=== PATIENT | female | born 1935 | race Caucasian/White ===

== ENCOUNTER 2017-01-29 07:23 | Inpatient (IN) | payer OTHER ==
[~2017-01-29] VITALS: Ht 152.4 cm; Wt 54.6 kg
--- NOTE | ~2017-01-29 | CO ---
Unit #: [id number] #: [id number] Patient: YESSICA BORDEN [id number] [address] [place], [place] [address] [id number] I MR#: [id number] NAME: YESSICA BORDEN ROOM: 329 Age: 81 Sex: F Admission Date: 01/29/2017 : 1935 Attending Physician: Hill Mensah M.D. Primary Care Physician: Kannan Pryor M.D. Consultation Date: 01/30/2017 CONSULTATION REPORT HISTORY OF PRESENT ILLNESS This is an 81-year-old female with a prior history of dementia and hypertension. She presented to the ER after falling at home with left wrist swelling and soreness as well as right knee swelling and pain. She states she was getting back in bed after using the bathroom and her feet slipped out from under her and she fell. Denies any lightheadedness or chest discomfort with the fall. A CT of the head in the ER, showed no acute findings. An MRI of the brain showed chronic microvascular changes. Chest x-ray showed stable cardiomegaly. Yesterday evening, she went into atrial fibrillation with rates in the 130s to 140s. We were asked to see her to evaluate. She received a 10 mg Cardizem bolus and was started on a Cardizem drip. This morning, she is in sinus rhythm with rate 60s to 70s. She denies any symptoms of palpitations, shortness of air, chest discomfort with rapid atrial fibrillation. She denies prior cardiac history. She denies shortness of breath or chest pain. Her son was present at the bedside for evaluation. PAST MEDICAL HISTORY 1. Hypertension. 2. Dementia. PAST SURGICAL HISTORY Right second toe amputation. SOCIAL HISTORY She lives with her son and mpvznteo-ua-vox. She denies a history of illicit drugs or alcohol use. She is a lifetime nonsmoker. FAMILY HISTORY She denies a family history of premature coronary artery disease. ALLERGIES No known drug allergies. HOME MEDICATIONS Exelon one patch topical daily, Namenda 10 mg p.o. b.i.d., Lipitor 20 mg p.o. daily, metoprolol succinate 50 mg p.o. daily, Evista 60 mg p.o. daily. REVIEW OF SYSTEMS A 10-point review of systems was conducted. Positive for recent fall, left hand, left wrist, and right knee swelling and pain. She denies fevers, chills, or body aches. Denies chest pain, shortness of air, or palpitations. Otherwise, negative except for what was stated in the HPI. Unit #: [id number] #: [id number] Patient: YESSICA BORDEN PHYSICAL EXAMINATION VITAL SIGNS: Temperature 98.2, heart rate 63, respiratory rate 16, blood pressure 138/60. GENERAL: This is a pleasant elderly 81-year-old female, resting in bed, in no acute distress. HEENT: Head is atraumatic and normocephalic. Pupils are equal and reactive to light. Mucous membranes are moist and intact. NECK: Supple. Trachea is midline. No JVD. LUNGS: Clear and decreased in bases. Nonlabored respirations. CARDIOVASCULAR: S1 and S2. Regular rate and rhythm. No significant murmurs, rubs, or gallops. ABDOMEN: Soft, nontender, nondistended. EXTREMITIES: Left hand and wrist swollen. Pulses are palpable. Right knee swelling. No pedal edema. NEUROLOGIC: Alert and oriented x3. Follows all commands equally and moves extremities without difficulty. DIAGNOSTIC STUDIES LABORATORY RESULTS: Sodium 139, potassium 3.6, chloride 105, BUN 13, creatinine 0.6, glucose 115. TSH 2.3. Magnesium 2.1. Hemoglobin 12.1, hematocrit 36.8, white blood cell count 15, platelets 341. IMAGING STUDIES: CT of the head was negative for acute findings. Chest x-ray showed stable cardiomegaly with no active disease. MRI of the brain showed microvascular chronic ischemic changes. CARDIOVASCULAR STUDIES: EKG shows atrial fibrillation with ventricular rate of 130 with PVCs. ASSESSMENT 1. Left wrist and right knee swelling. 2. Status post fall at home. 3. Atrial fibrillation with rapid ventricular rate, now normal sinus rhythm. 4. Hypertension. 5. Dementia. PLAN She is in normal sinus rhythm this morning. We will discontinue her Cardizem and heparin drips. Start Cardizem CD 120 mg p.o. once a day. Plan for 24-hour Holter monitor. Due to her risk with falls and dementia, we will not anticoagulate her at this time. If atrial fibrillation recurs in the future, we will consider anticoagulation per Dr. Griffiths's wishes. We will replace her potassium. Check echocardiogram. Thank you for asking us to see this patient. We appreciate the consult. Dictated by... Kateryna Bach Aprn for Jim Griffiths M.D. MEHRDAD/kostas TD: 01/31/2017 11:21 JOB #: [id number] Unit #: [id number] #: [id number] Patient: YESSICA BORDEN CONSULTATION REPORT Page 1 of 1 X X CONSULTATION REPORT
--- NOTE | ~2017-01-29 | CR170 ---
[facility] A Service of [facility] RADIOLOGY TEXT RESULTS PATIENT: YESSICA BORDEN LOCATION: [facility] 329- : 33 UNIT #: [id number] AGE: [address]: JESSICA KRAMER V SEX: F ORDER DR: [id number] [facility] [address] [place], [place] [address] [id number] I MR#: [id number] Acc #: [id number] NAME: YESSICA BORDEN. : 1935 SEX: F STUDY DATE/TIME: 01/30/2017 16:48 UNIT: [address] ROOM: [facility] STUDY DESCRIPTION: CR Knee 2 Views Rt Attending Physician: Jessica Kramer M.D. Ordering Physician: Jessica Kramer M.D. Primary Care Physician: Kannan Pryor M.D. MEDICAL IMAGING REPORT This report is preliminary unless electronic signature is present EXAM Right knee series 01/30/2017. HISTORY The history is pain. Fall 01/29/2017. TECHNIQUE AP and lateral radiographs of the right knee are presented. FINDINGS There is no traumatic fracture or malalignment. Marked narrowing medial joint space compartment. Probably ymek-hw-gsveapab narrowing, femoral joint space compartment. Marginal osteophyte formations medial compartment articular surfaces. There is no definite joint effusion. Question mild soft tissue swelling right suprapatellar region. This could in part be a projectional artifact. Correlate with exam. There is no soft tissue defect. There are vascular calcifications. Small fabella posteriorly. Dictated by... Eloy Mckeon M.D. THIS IS AN ELECTRONICALLY VERIFIED REPORT Eloy Mckeon M.D. at 02/01/2017 10:02 PM NIGEL/lalitha TD: 01/31/2017 08:13 JOB #: [id number] MEDICAL IMAGING REPORT Page 1 of 1 COPY
--- NOTE | ~2017-01-29 | EKG ---
PATIENT: YESSICA BORDEN UNIT #: [id number] Ventricular Rate: 130 BPM Atrial Rate: 117 BPM QRS Duration: 80 ms Q-T Interval: 322 ms QTC Calculation(Bezet): 473 ms Calculated R [place]: 133 degrees Calculated T [place]: 96 degrees Diagnosis Line: Poor data quality, interpretation may be Diagnosis Line: adversely affected Diagnosis Line: Suspect arm lead reversal, interpretation Diagnosis Line: assumes no reversal Diagnosis Line: Atrial fibrillation with rapid ventricular Diagnosis Line: response with premature ventricular or aberrantly Diagnosis Line: conducted complexes Diagnosis Line: Septal infarct , age undetermined Diagnosis Line: Lateral infarct , age undetermined Diagnosis Line: Abnormal ECG Diagnosis Line: When compared with ECG of 29-JAN-2017 07:55, Diagnosis Line: (unconfirmed) Diagnosis Line: Significant changes have occurred Diagnosis Line: Confirmed by SULMA BROWN MD ([id number]) on Diagnosis Line: 01/31/2017 10:49:58 AM INTERPRETING MD: KEVIN TATE
--- NOTE | ~2017-01-29 | A ---
[facility] Nutrition Therapy DATE: 01/30/17 Patient: YESSICA BORDEN Physician: BALJINDER Address: [id number] [place] [address] ROAD Room/Bed: [address] [place] [address], Zip: [place] [address] Admit Date: 01/29/17 Date of : 33 Height: 5 0 Weight: 119 54.4 NUTRITIONAL ASSESSMENT: REASON: PT SEEN FOR DX, CONSULT RECEIVED PT IS 81 Y.O. FEMALE ADMITTED FOR TIA, AFIB PMH: DEMENTIA, HTN, (R) 2ND TOE AMPUTATION Anthropometrics: 5'0", WT: 120# (55 KG), BMI: 23.4 Labs: GLU: 115, CA+:8.2, ALB: 3.1 Meds: LIPITOR, NOVOLOG, NACL I/O & Bowel function: 480/601 Skin Integrity: NO KNOWN SKIN ISSUES EDEMA: LUE 1+EDEMA; RUE 1+ EDEMA Assessment: CHART REVIEWED AND EVENTS NOTED. PT SEEN FOR DX, ALSO CONSULT RECEIVED. PT PLEASANTLY CONFUSED AT TIME OF VISIT. DAUGHTER AT BEDSIDE REPORTS PT TO HAVE FAIR PO INTAKE AND APPETITE PRIOR TO ADMIT, NOTING PT "NIBBLES" THROUGHOUT THE DAY. DAUGHTER ADDS PT "ATE WELL" FOR LUNCH TODAY. PT AND DAUGHTER DENY ANY RECENT WEIGHT LOSS. THIS RD ENCOURAGED ADEQUATE KCAL AND PROTEIN INTAKE, PT AGREED TO ENSURE PUDDING BID, RD TO ORDER. PT AND DAUGHTER REPORTED NO DIET QUESTIONS AT THIS TIME. RD TO REMAIN AVAILABLE. Dx: INADEQUATE PROTEIN-ENERGY INTAKE R/T ADVANCED AGE, PMH AEB DAUGHTER REPORT ABOVE. 2. ALTERED NUTRIENT UTILIZATION R/T PMH AEB NEED FOR THERAPEUTIC DIET ORDER. Intervention: 1. HEALTHY HEART DIET 2. ENSURE PUDDING BID Monitoring, Evaluation and Goals: 1. ORAL INTAKE; CONSUME/TOLERATE >50% OF MEALS AND SUPPLEMENTS 2. WEIGHTS; PROMOTE HEALTHY WEIGHT MAINTENANCE 3. LABS; GLU, CA+ MONITOR: PER PROTOCOL, CRITERIA TO DETERMINE IF GOALS ARE MET Recommendations: 1. PLEASE ORDER [place] ENSURE PUDDING BID W/MEALS FOR SUPPLEMENTAL NUTRITION 2. ENCOURAGE PO INTAKE [facility] Nutrition Therapy DATE: 01/30/17 Patient: YESSICA BORDEN Physician: BALJINDER Address: [id number] [place] [address] ROAD Room/Bed: [address] [place] [address], Zip: [place] [address] Admit Date: 01/29/17 Date of : [birth year] Height: 5 0 Weight: [address] WILL F/U PER PROTOCOL PT IS MILDLY COMPROMISED Respectfully, YONAS MOON MS, RD, LD [facility] cc: client file
--- NOTE | ~2017-01-29 | EKG ---
PATIENT: YESSICA BORDEN UNIT #: [id number] Ventricular Rate: 68 BPM Atrial Rate: 68 BPM P-R Interval: 172 ms QRS Duration: 76 ms Q-T Interval: 410 ms QTC Calculation(Bezet): 435 ms P [place]: 34 degrees Calculated R [place]: 54 degrees Calculated T [place]: 74 degrees Diagnosis Line: Normal sinus rhythm Diagnosis Line: Nonspecific T wave abnormality Diagnosis Line: Abnormal ECG Diagnosis Line: When compared with ECG of 01-OCT-2010 23:30, Diagnosis Line: Nonspecific T wave abnormality, worse in Diagnosis Line: Anterolateral leads Diagnosis Line: Confirmed by SULMA BROWN MD ([id number]) on Diagnosis Line: 01/31/2017 10:49:02 AM INTERPRETING MD: KEVIN TATE
--- NOTE | ~2017-01-29 | CR278 ---
[facility] A Service of [facility] RADIOLOGY TEXT RESULTS PATIENT: YESSICA BORDEN LOCATION: [facility] 329- : 33 UNIT #: [id number] AGE: [address]: JESSICA KRAMER V SEX: F ORDER DR: [id number] [facility] [address] [place], [place] [address] [id number] I MR#: [id number] Acc #: [id number] NAME: YESSICA BORDEN. : 1935 SEX: F STUDY DATE/TIME: 01/30/2017 16:51 UNIT: [address] ROOM: [facility] STUDY DESCRIPTION: CR Wrist 2 View Lt Attending Physician: Jessica Kramer M.D. Ordering Physician: Jessica Kramer M.D. Primary Care Physician: Kannan Pryor M.D. MEDICAL IMAGING REPORT This report is preliminary unless electronic signature is present EXAM Left wrist series, 01/30/2017. HISTORY Pain, status post fall, 01/29/2017. FINDINGS AP and lateral views of the wrist are presented. Poor quality examination. An oblique view is not provided. The lateral view is poorly positioned. Generalized bony demineralization. On the lateral view, relationship of the scaphoid bone to the trapezium bone is ill-defined and I cannot exclude anterior subluxation or dislocation of the trapezium bone. This could easily be a projectional artifact given the obliquity of the lateral view. There is marked degenerative change at the basal joint of the thumb. This could be contributing to the appearance. Consider repeat wrist series. Correlate with location of pain and mechanism of injury. No other potential traumatic malalignment is seen. No definite fracture. Soft tissue swelling posterior aspect of the wrist and probably along the anterior lungs are posterior aspect of the wrist and probably along the anterior aspect of the wrist as well. There is no soft tissue defect seen. There does appear to be bandaging material over the posterior aspect of the wrist and hand. Dictated by... Eloy Mckeon M.D. THIS IS AN ELECTRONICALLY VERIFIED REPORT Eloy Mckeon M.D. at 02/01/2017 10:02 PM Curt TD: 01/31/2017 08:28 JOB #: [id number] [facility] A Service of [facility] RADIOLOGY TEXT RESULTS PATIENT: YESSICA BORDEN LOCATION: [facility] 329-01 : 33 UNIT #: [id number] AGE: [address]: JESSICA KRAMER V SEX: F ORDER DR: MEDICAL IMAGING REPORT Page 1 of 1 COPY
--- NOTE | ~2017-01-29 | CR72 ---
[facility] A Service of [facility] RADIOLOGY TEXT RESULTS PATIENT: YESSICA BORDEN LOCATION: [facility] [id number] : 33 UNIT #: [id number] AGE: [address]: Gibson Neri MD SEX: F ORDER DR: [id number] [facility] [address] [place], [place] [address] [id number] I MR#: [id number] Acc #: [id number] NAME: YESSICA BORDEN. : 1935 SEX: F STUDY DATE/TIME: 01/29/2017 7:53 UNIT: [facility] ROOM: [address] STUDY DESCRIPTION: CR Chest Single View Portable Attending Physician: Gibson Neri M.D. Ordering Physician: Arnav Vazquez M.D. Primary Care Physician: Kannan Pryor M.D. MEDICAL IMAGING REPORT This report is preliminary unless electronic signature is present EXAM Portable chest 01/29 INDICATION Shortness of air, weakness and left arm and leg swelling that started today. FINDINGS AP portable chest is compared with 06/17/2011. Heart remains enlarged. Lungs are clear. No pneumothorax. There is dextroscoliosis in the thoracic spine. IMPRESSION Stable cardiomegaly. No active disease. Dictated by... Mike Rivera Jr., M.D. THIS IS AN ELECTRONICALLY VERIFIED REPORT Mike Rivera Jr., M.D. at 01/29/2017 3:38 PM LUCERO/renae TD: 01/29/2017 13:56 JOB #: [id number] MEDICAL IMAGING REPORT Page 1 of 1 COPY
--- NOTE | ~2017-01-29 | DS ---
Unit #: [id number] #: [id number] Patient: YESSICA BORDEN [id number] [address] [place], [place] [address] [id number] I MR#: [id number] NAME: YESSICA BORDEN. ROOM: 329 Age: 81 Sex: F Admission Date: 01/29/2017 : 1935 Discharge Date: 02/01/2017 Attending Physician: Hill Mensah M.D. Primary Care Physician: Kannan Pryor M.D. DISCHARGE SUMMARY DISCHARGE DIAGNOSES Urinary tract infection, paroxysmal atrial fibrillation with rapid ventricular rate, dementia. HOSPITAL COURSE The patient is an 81-year-old female, who presented to [facility] Emergency Department on 01/29/2017 after a fall. She had some additional symptoms including left arm and left leg swelling. Additionally, discussion with family revealed the patient had some issues with encephalopathy/confusion after starting Namenda. Given these complaints and the finding of urinary tract infection in the emergency department, the patient was admitted. There was additionally some question of TIA given the symptoms, though this appears less likely. The patient did go on to develop some tachycardia with a pulse of 127 associated with her atrial fibrillation and the patient was seen by Cardiology. She was initially started on Cardizem, but this has since been stopped and the patient is being discharged on amiodarone for rate control. The patient's symptoms have resolved at this time. It is unclear if this is due to treatment of the urinary tract infection or discontinuation of Namenda, though I favor the latter. DISCHARGE MEDICATIONS Amiodarone 200 mg daily, metoprolol succinate 50 mg p.o. daily, Lipitor 20 mg p.o. daily, Evista 60 mg daily, Exelon patch topically daily. FOLLOWUP The patient should follow up with her primary care provider in 1 to 2 weeks. Dictated by... Adam Alexander M.D. KRISTYN/kostas TD: 02/05/2017 02:02 JOB #: [id number] Unit #: [id number] #: [id number] Patient: YESSICA BORDEN DISCHARGE SUMMARY Page 1 of 1 X Adam Alexander MD DISCHARGE SUMMARY
--- NOTE | ~2017-01-29 | CT71 ---
[facility] A Service of [facility] RADIOLOGY TEXT RESULTS PATIENT: YESSICA BORDEN LOCATION: [facility] : 33 UNIT #: [id number] AGE: [address]: Gibson Neri MD SEX: F ORDER DR: [id number] [facility] [address] [place], [place] [address] [id number] I MR#: [id number] Acc #: [id number] NAME: YESSICA BORDEN. : 1935 SEX: F STUDY DATE/TIME: 01/29/2017 8:37 UNIT: [facility] ROOM: [address] STUDY DESCRIPTION: CT Head Wo Contrast Attending Physician: Gibson Neri M.D. Ordering Physician: Arnav Vazquez M.D. Primary Care Physician: Kannan Pryor M.D. MEDICAL IMAGING REPORT This report is preliminary unless electronic signature is present EXAM Noncontrast head CT. HISTORY 81-year-old female swelling left arm and leg. Complains of weakness. Fell out of bed today. COMPARISON Head CT, 09/01/2006. FINDINGS Thin section axial images performed of the brain without contrast. This CT exam was performed with one or more of the following radiation dose reduction techniques: automatic exposure control, adjustment of mA and/or kV according to patient size, and iterative reconstruction. Mild atrophy in keeping with age. No mass, mass effect or midline shift. No hemorrhage. No abnormal extraaxial fluid collections. Bony calvaria, skull base, mastoids and sinuses unremarkable. IMPRESSION Normal noncontrast head CT for age. Dictated by... Shena Liu M.D. THIS IS AN ELECTRONICALLY VERIFIED REPORT Shena Liu M.D. at 01/29/2017 5:18 PM Brandy [facility] A Service of [facility] RADIOLOGY TEXT RESULTS PATIENT: YESSICA BORDEN LOCATION: [facility] : 33 UNIT #: [id number] AGE: [address]: Gibson Neri MD SEX: F ORDER DR: TD: 01/29/2017 15:44 JOB #: [id number] MEDICAL IMAGING REPORT Page 1 of 1 COPY
--- NOTE | ~2017-01-29 | CO ---
Unit #: [id number] #: [id number] Patient: YESSICA BORDEN [id number] [facility] [address] [place], [place] [address] [id number] I MR#: [id number] NAME: YESSICA BORDEN. ROOM: 329 Age: 81 Sex: F Admission Date: 01/29/2017 : 1935 Attending Physician: Hill Mensah M.D. Primary Care Physician: Kannan Pryor M.D. Consultation Date: 01/29/2017 CONSULTATION REPORT REASON FOR CONSULTATION TIA. PRIMARY CARE PHYSICIAN Dr. Pryor. PATIENT IDENTIFICATION This 81-year-old right-handed white female, who is evaluated in room ER 18 at [facility]. SOURCE OF INFORMATION 1. Essentially, the family. 2. The patient has dementia. PROBLEM LIST 1. Hypertension. 2. Hyperlipidemia. 3. She has been diagnosed with cardiac issues. 4. Early dementia. 5. Status post right second toe amputation in the past. 6. Status post falls. HISTORY OF PRESENT ILLNESS This 81-year-old female who was actually brought in for swelling in the left arm and also in the right leg and they were saying it started when she was started on memantine. The patient stated that she has fallen or nearly fallen several times. The swelling in the left arm was probably a week or so old and the right tezwj-swb-auif swelling is there. So far what I have is that her blood pressure has been elevated as high as it was 114/110 and other times 119/105. She is afebrile. Head CT showed atrophy, but nothing else. She has significant dementia. Her white count is 11.7. Urinalysis did show 3+ leukocyte esterase, trace protein, 50 to 100 wbc's and bacteria was negative though. No seizures. She was called TIA, but I am not really sure what the TIA symptom was, she has memory problems and her one child who lives with her did not notice anything because probably so progressive, but another child that came visiting, saw significant change which is typical. PAST MEDICAL HISTORY As discussed above. Unit #: [id number] #: [id number] Patient: YESSICA BORDEN PAST SURGICAL HISTORY As discussed above. ALLERGIES None. HOME MEDICATIONS Exelon 1 patch topically daily, Namenda 10 mg p.o. b.i.d., Lipitor 20 mg, metoprolol succinate 50 mg, Evista 60 mg daily. FAMILY HISTORY Noncontributory secondary to her age. SOCIAL HISTORY No tobacco, alcohol, or drug use. She lives with family with good support. REVIEW OF SYSTEMS GENERAL: The patient really denies any problems. She does not even say there is pain. She state that she may have fallen nearly fallen. She denies any weight issues, fever, chills, rigor, or sweats. HEENT: No headaches. No double vision, earache, runny nose, or sore throat. CARDIOVASCULAR: No chest pain, clubbing, cyanosis, orthopnea, or palpitation. PULMONARY: No shortness of air, cough, or expectoration. GI: No nausea, vomiting, diarrhea, or constipation. GENITOURINARY: No genitourinary symptoms. EXTREMITIES: Problem as discussed. Her left elbow and right uigeh-byc-bmng pain. BACK: No back problems. PSYCHIATRIC: Probably early dementia. NEUROLOGIC: Probably early dementia. No other hematologic, dermatologic, or endocrine problem. PHYSICAL EXAMINATION VITAL SIGNS: Temperature shows 98 degrees Fahrenheit, pulse 66, respirations 15, blood pressure 141/110, O2 saturations were 95% to 99%, weight of 120 pounds. BMI was 23. NEUROLOGIC: The patient is awake. She is alert. She is oriented to herself and her son. She is not oriented to the place. She knows she is in some sort of hospital. She does not know the date or the day or the time. She can name. She can follow commands. No right/left confusion. No finger agnosia. Cranial examination demonstrates respond to threats in all lange. Extraocular movements are intact. Eye movements are conjugate. No ptosis. No nystagmus. Sensation on the face and scalp are normal. Strength of muscles of facial expression are normal. Hearing seemed to be intact. Tongue was midline. Uvula was midline. Palate elevation was normal. Head turning and shoulder shrugs were unremarkable. Motor examination demonstrated normal bulk, tone, except for pain in the left wrist and right zhywp-biy-syqo. I did not see any significant strength deficits, so it may be give-way weakness because of the pain. Her fine motor movements were normal in the fingers and the toes. Sensory examination intact for soft touch and pain sensation. No Unit #: [id number] #: [id number] Patient: YESSICA BORDEN was seen. Romberg was not evaluated. Gait examination was deferred. I could not get any reflexes. Toes are equivocal. DIAGNOSTIC STUDIES LABORATORY RESULTS: Reviewed. IMPRESSION This is a very interesting 81-year-old right-handed white female, who actually was brought in for left wrist swelling and weakness. I think the weakness is related to left wrist swelling. There is also right leg vkkrg-bsa-hemi swelling. I do not think there is anything to do with memantine. She has fallen or nearly fallen a couple of times, probably this is not a transient ischemic attack, though at her age and comorbidities strokes can happen and sometime right hemispheric strokes can have neglect and they could be left-sided weakness. That the first thing I am going to do is MRI of the brain. If the MRI of the brain is negative, and this symptoms have been going on for several days and definitely it is not a stroke. If it is a stroke, I will follow up and do further workup. I do want to recommend aspirin and continue the Lipitor, though I would suggest a higher dose if we are going to use it. I will check other labs and she may have urinary tract infection and that may need to be treated. I am not starting or adding any other medication. I talked to her son and again I really doubt that this is a transient ischemic attack and I think the other issues, so call me for any other questions, issues, or concerns and follow up with primary care physician and primary neurologist. Dictated by... Kirt Rossi/kostas TD: 01/30/2017 11:58 JOB #: [id number] CONSULTATION REPORT Page 1 of 1 X Gerber Guerrero MD CONSULTATION REPORT
--- NOTE | ~2017-01-29 | MR18 ---
[facility] A Service of [facility] RADIOLOGY TEXT RESULTS PATIENT: YESSICA BORDEN LOCATION: [facility] 329-01 : 33 UNIT #: [id number] AGE: [address]: JESSICA KRAMER V SEX: F ORDER DR: [id number] [facility] [address] [place], [place] [address] [id number] I MR#: [id number] Acc #: [id number] NAME: YESSICA BORDEN. : 1935 SEX: F STUDY DATE/TIME: 01/29/2017 17:10 UNIT: [address] ROOM: [facility] STUDY DESCRIPTION: MR Brain Wo Contrast Attending Physician: Jessica Kramer M.D. Ordering Physician: Gerber Guerrero M.D. Primary Care Physician: Kannan Pryor M.D. MRI CENTER REPORT This report is preliminary unless electronic signature is present. EXAM MRI of the brain without contrast dated 01/29/2017. COMPARISON MRI brain without contrast dated 04/23/2013. HISTORY Left arm and left leg swelling for 2 weeks, getting worse. Patient has slight dementia. Unable to give history. Right leg pain today, generalized weakness. FINDINGS Multisequence, multiplanar imaging of the brain was obtained without contrast. No acute stroke, hydrocephalus or midline shift. There is focal hypointense gradient signal in the anterior aspect of the left cerebellar hemisphere. Scattered punctate, hypointense gradient signal is also seen in bilateral occipital lobes, left temporal lobe, left parietal lobe. They are predominantly noted in the region of the sulci and adjacent cortex. They could represent punctate tiny vessel or tiny calcification or hemosiderin deposition. They were not as well seen in the prior study from 4 years ago, except in the left cerebellar hemisphere. Status post bilateral cataract surgery. S-shaped nasal septal deviation is noted. There is minimal right and [id number] left mastoid mucosal thickening. Thick slices through the sella with the pituitary gland, pineal region are unremarkable. Degenerative changes are in the cervical spine. Motion artifact is noted in some of the sequences. IMPRESSION 1. Hyperintense T2-signal lesions are noted in the brain suggestive of mild chronic microvascular ischemic change or migraine, based on age and statistics. Nonspecific. Punctate hypointense gradient signal in the left cerebellar hemisphere is stable and could represent focal calcification or hemosiderin deposition from old insult. There are STS. [facility] A Service of [facility] RADIOLOGY TEXT RESULTS PATIENT: YESSICA BORDEN LOCATION: A 329- : 33 UNIT #: [id number] AGE: [address]: JESSICA KRAMER V SEX: F ORDER DR: also punctate few other hypointense gradient signal changes noted in the supratentorial brain without any associated edema. They could represent tiny petechial areas of hemosiderin deposition or calcification. Less likely, they could represent part of a vessel. No associated mass effect. Dictated by... Bailee Francois M.D. THIS IS AN ELECTRONICALLY VERIFIED REPORT Bailee Francois M.D. at 01/30/2017 6:38 PM CPR/psc TD: 01/30/2017 09:36 JOB #: [id number] MRI CENTER REPORT Page 1 of 1 COPY
--- NOTE | ~2017-01-29 | CR285 ---
[facility] A Service of [facility] RADIOLOGY TEXT RESULTS PATIENT: YESSICA BORDEN LOCATION: [facility] 329- : 33 UNIT #: [id number] AGE: [address]: JESSICA KRAMER V SEX: F ORDER DR: [id number] [facility] [address] [place] [address] [place], [place] [address] [id number] I MR#: [id number] #: [id number] NAME: YESSICA BORDEN. : 1935 SEX: F STUDY DATE/TIME: 01/31/2017 18:30 UNIT: [address] ROOM: [facility] STUDY DESCRIPTION: CR Wrist W Navicular Min 3 Lt Attending Physician: Jessica Kramer M.D. Ordering Physician: Jessica Kramer M.D. Primary Care Physician: Kannan Pryor M.D. MEDICAL IMAGING REPORT This report is preliminary unless electronic signature is present EXAM Left wrist HISTORY Fall. Pain. FINDINGS Four views of the left wrist were obtained. These include exaggerated navicular views. Marked degenerative changes first carpometacarpal joint noted. No navicular bone fracture visible. IMPRESSION No navicular bone fracture identified. If symptoms persist, follow-up imaging may show a fracture in a week or 2. Dictated by... Robbie Sun M.D. THIS IS AN ELECTRONICALLY VERIFIED REPORT Robbie Sun M.D. at 02/01/2017 7:58 PM FEL/pcl TD: 02/01/2017 16:48 JOB #: [id number] MEDICAL IMAGING REPORT Page 1 of 1 COPY
--- NOTE | ~2017-01-29 | HP ---
Unit #: [id number] #: [id number] Patient: YESSICA BORDEN [id number] [address] [place], [place] [address] [id number] I MR#: [id number] NAME: YESSICA BORDEN. ROOM: 73606 Age: 81 Sex: F Admission Date: 01/29/2017 : 1935 Attending Physician: Gibson Neri M.D. Primary Care Physician: Kannan Pryor M.D. HISTORY AND PHYSICAL CHIEF COMPLAINT Weakness. HISTORY OF PRESENT ILLNESS The patient is an 81-year-old female with a history of dementia and started on Namenda on the 12/09. Presented to the emergency room status post fall associated with swelling of the left arm and leg after starting the Namenda. The patient stated the patient was trying to go to the bathroom and had a fall while returning back to the bed. The patient also complains of swelling of the left hand and warm on the right leg. The patient had a CT of the head that was negative. The patient was positive for a urinary tract infection and is being admitted for the above reasons. The patient denies any fever or any urinary complaints. PAST MEDICAL HISTORY 1. History of hypertension. 2. Dementia. PAST SURGICAL HISTORY History of right second toe amputation. SOCIAL HISTORY No history of smoking cigarettes, drinking alcohol or any illicit drug abuse. FAMILY HISTORY Reviewed and none. ALLERGIES No known drug allergies. HOME MEDICATIONS 1. Exelon. 2. Namenda. 3. Lipitor. 4. Metoprolol. 5. Evista. REVIEW OF SYSTEMS Positive for fall. Positive for swelling. Positive for soreness. Denies any fever. Denies any chills. All other systems have been reviewed and none. PHYSICAL EXAMINATION Unit #: [id number] #: [id number] Patient: YESSICA BORDEN GENERAL: The patient is lying on a bed, not in acute distress. VITALS: Temperature 98, pulse 74, respiratory rate 15, blood pressure 152/57, saturating 99% on room air. HEENT: Head atraumatic, normocephalic. Pupils equal, round and reactive to light and accommodation. Extraocular movements are intact. Dry mucous membranes. NECK: Supple. LUNGS: Decreased air entry at the bases. HEART: Regular rate and rhythm. ABDOMEN: Soft. Positive bowel sounds. EXTREMITIES: Swelling of the left ring finger beyond the ring. Warmness to the left hand and the right ankle. NEUROLOGIC: Alert, awake and oriented. No gross focal motor deficits. DIAGNOSTIC STUDIES IMAGING: Chest x-ray shows stable cardiomegaly, no active disease. LABORATORY: Glucose 93, WBC 11.7, hemoglobin 12.9, hematocrit 38, platelets 349, troponin less than 0.05, INR 1, CPK 48, sodium 140, potassium 4, chloride 103, bicarb 28, glucose 100, BUN 15, creatinine 0.7, calcium 8.8, AST 22, ALT 13. Urinalysis shows positive 3+ leukocyte esterase, trace protein, 50-100 urine WBCs. ASSESSMENT/PLAN 1. Fall. 2. Urinary tract infection. 3. Weakness. PLAN Plan to admit patient to observation with telemetry. The patient had a CT of the head that was negative. The patient had a consult with neurology for concerns for subacute stroke as per the ER as the ER was concerned that the patient might have a stroke. That is what lead to the neuro consult and recommended MRI of the brain. Recommended not to continue with Namenda. Continue with IV antibiotics with Rocephin. Continue with OT and PT. Remove the ring for constriction and then further recommendations will follow. Dictated by Kirt Diggs TD: 01/29/2017 15:06 JOB #: [id number] HISTORY AND PHYSICAL Page 1 of 1 X SARAH GARCIA MD X HISTORY AND PHYSICAL
--- NOTE | ~2017-01-29 | HM ---
Unit #: [id number] #: [id number] Patient: YESSICA BORDEN [id number] [address] [address] [id number] I MR#: [id number] NAME: YESSICA BORDEN. : 1935 SEX: F STUDY DATE/TIME: 02/04/2017 UNIT: C3A PCU ROOM: 329 STUDY DESCRIPTION: Holter monitor Attending Physician: Hill Mensah M.D. Primary Care Physician: Kannan Pryor M.D. CARDIOLOGY REPORT EXAM Holter monitor. DATE APPLIED January 31, 2012. DATE SCANNED February 05, 2012. ORDERED BY Hill Mensah M.D. READ BY [facility], Cha Brunner M.D. INDICATION TIA. COMMENTS 1. Basic rhythm is normal sinus rhythm. Total beats 36,496. Average heart rate 75 per minute. Heart rate varies from 61 per minute at 1603 to 113 per minute at 2104. 2. Scattered and isolated PVCs noted. 3. Fifty-six isolated PACs and 2 atrial couplets noted. Four runs of supraventricular tachycardia noted. Longest run contained 4 beats. 4. No high-degree AV blocks noted. 5. No diary with symptoms available. Dictated by... Kirt Post/hillary TD: 02/05/2017 07:33 JOB #: [id number] Unit #: [id number] #: [id number] Patient: YESSICA BORDEN CARDIOLOGY REPORT Page 1 of 1 X Cha Brunner MD HOLTER MONITOR REPORT
[~2017-01-29 07:23] MED LIST: ASPIRIN PO; CALTRATE PLUS T1 TAB PO; CIPRO PO; LIPITOR PO; PHENERGAN PO; PREMARIN VAGINAL; TOPROL XL PO
[2017-01-29 08:46] LABS: BASOPHIL# 0.1 X10e3 (0-0.3); BASOPHIL% 0.5 % (0-2.5); EOSINOPHIL# 0.1 X10e3 (0-0.7); EOSINOPHIL% 0.6 % (0.0-7.0); HEMOGLOBIN 12.9 gm/dL (12.0-16.0); LYMPHOCYTE# 1.2 X10e3 (1.0-3.5); LYMPHOCYTE% 10.1 % (17.0-45.0); MEAN CELL VOLUME 93.9 FL (83-96); MEAN CORPUSCULAR HEMOGLOBIN 31.9 PG (28-34); MONOCYTE% 8.5 % (3.0-12.0); NEUTROPHIL# 9.4 X10e3 (1.5-7.1); NEUTROPHIL% 80.3 % (40-75); PLATELET COUNT 349 X10e3 (140-420); RED BLOOD COUNT 4.04 X10e (3.90-5.30); RED CELL DISTRIBUTION WIDTH 12.9 % (11.0-15.5); WHITE BLOOD COUNT 11.7 X10e3 (4.0-10.5)
[2017-01-29 08:49] LABS: DIFF IND NO
[2017-01-29 08:49] LABS: POC - CKMB 1.1 ng/mL (0.0-7.9); POC - TROPONIN <0.05 ng/mL (<=0.05)
[2017-01-29 08:54] LABS: PROTHROMBIN TIME (PATIENT) 10.5 SECONDS (10.0-11.7)
[2017-01-29 09:35] LABS: ALBUMIN SERUM 3.1 g/dL (3.5-5.0); BILIRUBIN, DIRECT 0.2 mg/dL (0.0-0.2); BILIRUBIN,INDIRECT 0.7 mg/dL (0.0-0.9); BILIRUBIN,TOTAL 0.9 mg/dL (0.2-2.0); BUN/CREATININE RATIO 21.42; CALCIUM SERUM 8.8 mg/dL (8.4-10.2); CREATININE SERUM 0.7 mg/dL (0.6-1.4); GLOM FILT RATE Estimated 80.1 mL/min (>60)
[2017-01-29 11:11] LABS: URINE SOURCE CLEAN CATCH
[2017-01-29 11:18] LABS: URINE APPEARANCE CLOUDY; URINE BILIRUBIN NEG (NEG); URINE BLOOD TRACE (NEG); URINE COLOR YELLOW; URINE GLUCOSE NEG (NEG); URINE KETONE NEG (NEG); URINE LEUKOCYTE ESTERASE 3+ (NEG); URINE NITRATE NEG (NEG); URINE PROTEIN TRACE (NEG); URINE SPECIFIC GRAVITY 1.019 (1.003-1.035)
[2017-01-29 11:21] LABS: CULTURE INDICATED? YES; URINE BACTERIA AUWI NEG (NEGATIVE); URINE SQUAMOUS EPITHELIAL CELL MOD /[HPF]; UWBCS1 AUWI 50-100 (0-5)
[2017-01-29 11:34] LABS: URINE GRANULAR CAST 0-2 /[HPF]
[2017-01-29] MEDS ORDERED: PATIENT'S PHARMACY ×2 (11:52→11:53)
[2017-01-29] MEDS ORDERED: NAMENDA10 MG PO (11:54)
[2017-01-29] MEDS ORDERED: METOPROLOL SUCC50 MG PO (11:54)
[2017-01-29] MEDS ORDERED: EXELON4.6 MG TOP (11:54)
[2017-01-29] MEDS ORDERED: EVISTA60 M1 PO (11:54)
[2017-01-29] MEDS ORDERED: LIPITOR20 MG PO (11:54)
[2017-01-29 15:36] LABS: CHOLESTEROL 172 mg/dL (0-200); HDL CHOLESTEROL 48 mg/dL (35-95); LDL CHOLESTEROL 107 mg/dL (-130); LDL/HDL RATIO 2 RATIO (0-4); TRIGLYCERIDES 87 mg/dL (10-160)
[2017-01-29 16:30] LABS: FOLATE (FOLIC ACID) >23.3 ng/mL (>5.8)
[2017-01-30 02:19] LABS: HEMATOCRIT 36.8 % (35.0-45.0); HEMOGLOBIN 12.1 gm/dL (12.0-16.0); MEAN CELL VOLUME 94.3 FL (83-96); MEAN CORPUSCULAR HEMOGLOBIN 31.1 PG (28-34); MEAN CORPUSCULAR HGB CONC 32.9 g/dL (30-36); MEAN PLATELET VOLUME 9.1 FL (6.5-11.5); RED BLOOD COUNT 3.91 X10e (3.90-5.30); RED CELL DISTRIBUTION WIDTH 13.1 % (11.0-15.5)
[2017-01-30 02:42] LABS: PARTIAL THROMBOPLASTIN TIME 27.2 SECONDS (23.5-31.3)
[2017-01-30 02:47] LABS: BUN/CREATININE RATIO 21.66; CALCIUM SERUM 8.2 mg/dL (8.4-10.2); CREATININE SERUM 0.6 mg/dL (0.6-1.4); GLOM FILT RATE Estimated 84.3 mL/min (>60); POTASSIUM 3.6 mmol/L (3.5-5.1)
[2017-01-30 06:47] LABS: MAGNESIUM 2.1 mg/dL (1.6-3.0)
[2017-02-01] MEDS ORDERED: AMIODARONE HCL200 MG PO (16:25)
[2017-02-01] MEDS ORDERED: ASPIRIN81 MG PO (16:28)
== END 2017-02-01 17:07 | disposition home or self-care (01) | DRG 689 ==
LOC: CED 07:23 → CEDOF 12:57 → C3A PCU 12:57 → CED 13:13 → CEDOF 13:13 → C3A PCU 17:54
PROVIDERS: Emergency Medicine; Internal Medicine; Psychiatry & Neurology Neurology
PROC: B24BZZZ Ultrasonography of Heart with Aorta (ICD-10-PCS; principal; 2017-01-30)
DX: N39.0 Urinary tract infection, site not specified (principal); G92 Toxic encephalopathy; I48.0 Paroxysmal atrial fibrillation; F03.90 Unspecified dementia, unspecified severity, without behavioral disturbance, psychotic disturbance, mood disturbance, and anxiety; T43.8X5A Adverse effect of other psychotropic drugs, initial encounter; Y92.009 Unspecified place in unspecified non-institutional (private) residence as the place of occurrence of the external cause; I10 Essential (primary) hypertension; M25.432 Effusion, left wrist; M25.461 Effusion, right knee; W19.XXXA Unspecified fall, initial encounter; N12 Tubulo-interstitial nephritis, not specified as acute or chronic; Z89.421 Acquired absence of other right toe(s)
CPT/HCPCS: 36415; 70450; 70551; 71010; 73100; 73110; 73560; 80048; 80061; 80076; 81003; 82550; 82553; 82607; 82746; 82947; 83036; 83735; 84443; 84484; 85025; 85027; 85610; 85730; 86140; 87086; 93005; 93225; 93226; 93306; 97116; 97161; 97165; 97530; 97535; 99285; G8978-GP; G8979-GP; G8987-GO; G8988-GO; J0696; J1644